=== PATIENT | female | born 1995 | race Caucasian/White ===

== ENCOUNTER 2018-08-08 11:11 | Emergency (ER) | payer OTHER ==
[2018-08-08 11:16] VITALS: BMI 27.1
--- NOTE | 2018-08-08 11:29 | PDOC ---
History of Present Illness - General Chief Complaint: Syncope/Near Syncope Stated Complaint: NEAR SYNCOPE Time Seen by Provider: 08/08/18 11:29 - History of Present Illness Initial Comments: 23yo currently 21 weeks presenting to the ED after syncopal episode. Patient says she was in her living room when she felt lightheaded and lost consciousness. Her saw the episode and said she was down for about a minute or two. He noticed some tremors, but no jerking or shaking of all four limbs, tongue biting, or incontinence. She has never fainted before. Denies history of arrhythmia or heart problems. She felt weak after the syncopal episode but returned to baseline within a couple minutes. Patient says that for about a week she has felt weak with nausea and NBNB vomiting. She has also noticed black stools. She does endorse a stomachache that started this morning. 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 Patient denies chest pain, palpitations, shortness of breath, severe headaches, changes in vision, or focal numbness or weakness. Past History - Past Medical History Allergies/Adverse Reactions: Allergies Allergy/AdvReac Type Severity Reaction Status Date / Time No Known Allergies Allergy Verified 08/08/18 11:14 Home Medications: Ambulatory Orders Cephalexin [Keflex] 500 mg PO BID #14 capsule 08/08/18 COPD: No - Immunization History Immunization Up to Date: Yes - Suicide/Smoking/Psychosocial Hx Smoking History: Never smoked Hx Alcohol Use: No Drug/Substance Use Hx: No Review of Systems - Review of Systems Comments:: Constitutional: no fever, no chills HEENT: no throat pain, no dysphagia Cardiovascular: no chest pain, no palpitations Respiratory: no cough, no shortness of breath Gastrointestinal: +abdominal pain, +nausea, +vomiting Genitourinary: no dysuria, no frequency Musculoskeletal: no myalgia, no arthralgia Skin: no rash, no itching Neurologic: no headache, no dizziness *Physical Exam - Vital Signs Last Vital Signs Temp Pulse Resp BP Pulse Ox 98.0 F 89 18 110/61 99 08/08/18 11:14 08/08/18 11:14 08/08/18 11:14 08/08/18 11:14 08/08/18 11:14 - Physical Exam Comments: General: Awake, alert, and fully oriented, in no acute distress Head: no signs of trauma Eyes: EOMI ENT: Moist mucus membranes Neck: Normal ROM, supple Lungs: Lungs clear, Normal breath sounds Cardio: Regular rhythm, S1 and S2 present Abdomen: Soft, epigastric tenderness. No guarding, no rebound, no masses; gravid uterus extending above the umbilicus Extremities: Normal range of motion, Distal pulses present SKIN: Warm, Dry, normal turgor Neurologic: Cranial nerves II through XII grossly intact. Normal speech ED Treatment Course - LABORATORY CBC & Chemistry Diagram: 08/08/18 12:12 08/08/18 12:12 Medical Decision Making - Medical Decision Making 23yo currently 21 weeks presenting to the ED after syncopal episode. -DDX includes but not limited to anemia, GI bleed, arrhythmia, vasovagal, hypoglycemia, dehydration -Labs: no anemia or leukocytosis, UA positive with 5 WBCs and Leuks, FOBT negative -EKG: rate 73, QTc 405, NSR -Ofirmev 1000mg, Zofran 4mg -1L NS -Treat for asymptomatic bacteriuria with Keflex 500 BID x 7 days -Send to L&D as patient is over 20 weeks *DC/Admit/Observation/Transfer Diagnosis at time of Disposition: Syncope - Discharge Dispostion Disposition: HOME Condition at time of disposition: Stable - Prescriptions Prescriptions: Cephalexin [Keflex] 500 mg PO BID #14 capsule - Referrals Referrals: Celso Patel [Primary Care Provider] - Marilu Reed MD [Staff Physician] - - Patient Instructions Additional Instructions: You came to the emergency department for syncope (fainting). We performed blood work which was normal. Urinalysis shows signs of an infection. We sent antibiotics to your pharmacy: Keflex 500: 1 pill twice a day for seven days Follow up with your epoxy coatings installer doctor on Saturday at your appointment. Return to the Emergency Department if: you pass out again, have any chest pain, palpitations, shortness of breath, severe headaches, changes in vision, focal numbness or weakness, any severe abdominal pain, any black, tarry stool, or any other new or concerning symptoms === Usted vino al departamento de emergencias por un sncope (desmayo). Realizamos un anlisis de betsy que era normal. El anlisis de orina muestra signos de archie infeccin. Enviamos antibiticos a michelle farmacia: Keflex 500: 1 pastilla dos veces al da tamie siete moser Basia un seguimiento con michelle mdico obstetra / gineclogo el mircoles en michelle kalee. Regrese al Departamento de Emergencias si: se desmaya, tiene dolor en el pecho, palpitaciones, dificultad para respirar, katerin de katelynn severos, cambios en la visin, entumecimiento o debilidad focal, dolor abdominal intenso, heces negras, alquitranadas o cualquier otra enfermedad nueva. o acerca de los sntoma DISCHARGE TO HOME MAINTAIN APPOINTMENTS CALL MD AND COME TO HOSPITAL IF YOU HAVE CONTRACTIONS,VAGINAL BLEEDING OR YOU BREAK YOUR WATER OR IF YOU DO NOT FEEL THE BABY MOVING TAKE MEDICINE PRESCRIBED FOR YOUR URINARY TRACT INFECTION - INCREASE WATER INTAKE-8-10 GLASSES/DAY RETURN TO EMERGENCY ROOM IF YOU PASS OUT AGAIN - Post Discharge Activity
--- NOTE | 2018-08-08 12:01 | PDOC ---
Attending Attestation - Resident Resident Name: Yuni Salter - ED Attending Attestation I have performed the following: I have examined & evaluated the patient, The case was reviewed & discussed with the resident, I agree w/resident's findings & plan, Exceptions are as noted - HPI HPI: 23 yo currently 21WGA with uncomplicated . Presents s/p syncopal episode. She states she has had N/V persistently for the past week, dec PO intake. Her first trimester was uncomplicated, but the vomiting has started recently. Denies SOB, cp, leg swelling. +Abdominal cramping. - Physicial Exam PE: GENERAL: Awake, alert, and fully oriented, in no acute distress HEAD: No signs of trauma EYES: PERRLA, EOMI, sclera anicteric, conjunctiva clear ENT: Auricles normal inspection, hearing grossly normal, nares patent, oropharynx clear without exudates. Dry mucosa NECK: Normal ROM, supple, no lymphadenopathy, JVD, or masses LUNGS: Breath sounds equal, clear to auscultation bilaterally. No wheezes, and no crackles HEART: Regular rate and rhythm, normal S1 and S2, no murmurs, rubs or gallops ABDOMEN: Soft, nontender, normoactive bowel sounds. No guarding, no rebound. No masses. +Gravid uterus. EXTREMITIES: Normal range of motion, no edema. No clubbing or cyanosis. No cords, erythema, or tenderness NEUROLOGICAL: Cranial nerves II through XII grossly intact. Normal speech, normal gait. Motor and sensation intact. SKIN: Warm, Dry, normal turgor, no rashes or lesions noted. - Medical Decision Making Symptoms likely due to dehydration- lightheadedness, weakness, cramping all improved with IV fluids. UA showed WBCs, LE, and bacteria. Will give keflex. Sent to L&D once medically cleared.
[2018-08-08] MEDS ORDERED: SODIUM CHLORIDE 1,000 ML IV STA (12:06)
[2018-08-08 12:55] LABS: BASO % 0.3 % (0-2.0); EOS % 0.6 % (0-4.5); HEMATOCRIT 31.9 % (32.4-45.2); HEMOGLOBIN 10.7 GM/dL (10.7-15.3); LYMPH % 18.8 % (8-40); MCH 29.7 pg (25.7-33.7); MCHC 33.4 g/dl (32.0-36.0); MEAN CELL VOLUME 88.9 fl (80-96); MEAN PLT VOLUME 8.6 fl (7.5-11.1); MONO % 3.8 % (3.8-10.2); NEUT % 76.5 % (42.8-82.8); PLATELET COUNT 366 K/MM3 (134-434); WHITE BLOOD COUNT 9.7 K/mm3 (4.0-10.0)
[2018-08-08 13:09] LABS: HCG,QUALITATIVE URINE Positive
[2018-08-08 13:24] LABS: ALBUMIN 2.8 g/dl (3.4-5.0); ALK PHOS 78 U/L (45-117); ANION GAP 7 MMOL/L (8-16); BILIRUBIN,TOTAL 0.1 mg/dL (0.2-1); BLOOD UREA NITROGEN 5 mg/dL (7-18); CALCIUM 8.7 mg/dL (8.5-10.1); CHLORIDE 104 mmol/L (98-107); CO2 26 mmol/L (21-32); CREATININE 0.3 mg/dL (0.55-1.3); GLUCOSE,RANDOM 78 mg/dL (74-106); POTASSIUM 4.2 mmol/L (3.5-5.1); SGOT/AST 18 U/L (15-37); SGPT/ALT 26 U/L (13-61); SODIUM 137 mmol/L (136-145); TOT PROT 7.1 g/dl (6.4-8.2)
[2018-08-08] MEDS ORDERED: ONDANSETRON 4 MG/2 ML VIAL IVPUSH ONE (13:36)
[2018-08-08] MEDS ORDERED: ACETAMINOPHEN 1000 MG/100 ML VIAL (NON FORMULARY) IVPB ONE ×2 (13:36→15:25)
[2018-08-08 13:39] LABS: URINE APPEARANCE CLOUDY; URINE BILIRUBIN NEGATIVE (<2.0 mg/dL); URINE COLOR YELLOW; URINE GLUCOSE (UA) NEGATIVE (NEGATIVE); URINE KETONE NEGATIVE (NEGATIVE); URINE LEUK ESTERASE 2+ (NEGATIVE); URINE NITRITE NEGATIVE (NEGATIVE); URINE PROTEIN NEGATIVE (NEGATIVE); URINE UROBILINOGEN NEGATIVE mg/dL (0.2-1.0)
[2018-08-08 14:03] LABS: EPI CELLS MODERATE /HPF (FEW); URINE BACTERIA RARE /hpf (NONE SEEN); URINE MUCUS FEW
[2018-08-08] MEDS ORDERED: ONDANSETRON 4 MG/2 ML VIAL ONE (14:05)
[2018-08-08] MEDS ORDERED: ACETAMINOPHEN INJECTION 100 ML IVPB ONE (14:05)
[2018-08-08] MEDS ORDERED: CEPHALEXIN MONOHYDRATE 500 MG CAPSULE (UD) PO ONE (15:29)
[2018-08-08] MEDS ORDERED: CEPHALEXIN MONOHYDRATE 500 MG CAPSULE (UD) ONE (15:52)
[2018-08-08 17:36] VITALS: BP 109/68; PULSE 89; TEMP 98.8
--- NOTE | 2018-08-09 18:07 | EKG ---
Test Reason : Blood Pressure : / mmHG Vent. Rate : 073 BPM Atrial Rate : 073 BPM P-R Int : 136 ms QRS Dur : 074 ms QT Int : 368 ms P-R-T Axes : 042 051 018 degrees QTc Int : 405 ms NORMAL SINUS RHYTHM NORMAL ECG NO PREVIOUS ECGS AVAILABLE Confirmed by DORI JUÁREZ MD ([id number]) on 08/09/2018 6:06:55 PM Referred By: Confirmed By:DORI JUÁREZ MD
== END 2018-08-08 18:10 | disposition home or self-care (01) ==
LOC: JER 11:11
PROC: 3E0337Z Introduction of Electrolytic and Water Balance Substance into Peripheral Vein, Percutaneous Approach (ICD-10-PCS; principal; 2018-08-08)
PROC: 3E033NZ Introduction of Analgesics, Hypnotics, Sedatives into Peripheral Vein, Percutaneous Approach (ICD-10-PCS; 2018-08-08)
PROC: 3E033GC Introduction of Other Therapeutic Substance into Peripheral Vein, Percutaneous Approach (ICD-10-PCS; 2018-08-08)
DX: O26.892 Other specified pregnancy related conditions, second trimester (principal); R55 Syncope and collapse; R82.71 Bacteriuria; Z3A.21 21 weeks gestation of pregnancy
CPT/HCPCS: 36415; 80053; 81003; 81015; 82272; 84703; 85025; 87086; 93005; 93010; 96361; 96374; 96375; 99283-25; J0131; J7030

== ENCOUNTER 2018-12-09 12:00 | Inpatient (IN) | payer OTHER ==
[2018-12-09] MEDS ORDERED: BUTORPHANOL TARTRATE 1 MG/ML VIAL IVPUSH ONE (13:26)
[2018-12-09] MEDS ORDERED: PROMETHAZINE HCL 25 MG/1 ML VIAL IVPB ONE (13:26)
--- NOTE | 2018-12-09 13:26 | HP ---
Past Medical History - Primary Care Physician PCP:: Km Rondon - Admission Chief Complaint: 40.4 weeks, by date, 38,6 by sono, in labor History of Present Illness: 23 yo 38.6 by early sono ., 40.4 by date in labor, cx 2 to 3 cm 75 vx -3 mi , fhr cat 1, irregular contraction History Source: Patient Limitations to Obtaining History: Language Barrier - Past Medical History ...: 1 ...Para: 0 ...EDC by Dates: 12/05/18 ...EDC by Sono: 12/17/18 Heme/Onc: Yes: Anemia - Past Surgical History Hx Myomectomy: No Hx Transabdominal Cerclage: No - Smoking History Smoking history: Never smoked - Alcohol/Substance Use Hx Alcohol Use: No - Social History History of Recent Travel: No Home Medications - Allergies Allergies/Adverse Reactions: Allergies Allergy/AdvReac Type Severity Reaction Status Date / Time No Known Allergies Allergy Verified 12/09/18 12:54 - Home Medications Home Medications: Ambulatory Orders Pnv No.95/Ferrous Fum/Folic AC [ Vitamin Tablet] 1 each PO DAILY Review of Systems - Review of Systems Constitutional: reports: No Symptoms Eyes: reports: No Symptoms HENT: reports: No Symptoms Neck: reports: No Symptoms Cardiovascular: reports: No Symptoms Respiratory: reports: No Symptoms Gastrointestinal: reports: No Symptoms Genitourinary: reports: No Symptoms Breasts: reports: No Symptoms Reported Musculoskeletal: reports: No Symptoms Integumentary: reports: No Symptoms Neurological: reports: No Symptoms Endocrine: reports: No Symptoms Hematology/Lymphatic: reports: No Symptoms Psychiatric: reports: No Symptoms Physical Exam - Maternity Constitutional: Yes: Well Nourished, No Distress, Calm Eyes: Yes: WNL, Conjunctiva Clear, EOM Intact HENT: Yes: WNL, Atraumatic, Normocephalic Neck: Yes: WNL, Supple, Trachea Midline Cardiovascular: Yes: WNL, Regular Rate and Rhythm Breast(s): Yes: WNL - Abdominal Exam/OB Fundal Height: 38 Number of Fetuses: Single Presentation: Vertex Contractions: Yes Regularity: Irregular Intensity: Moderate Monitor Mode: External Heart Rate Location: [facility] Category: I Accelerations: Uniform Decelerations: None - Vaginal Exam/OB Vaginal Bleediing: Bloody Show Speculum Exam: No Dilatation (cm): 3 Effacement (%): 75 Amniotic Membrane Status: Intact Presentation: Vertex/Position Station: -3 - Physical Exam Edema: No Deep Tendon Reflex Grade: Normal +2 ...Motor Strength: WNL Psychiatric: Yes: WNL Problem List - Problems (1) 38 to 41 weeks gestation of Code(s): [id number] - (2) Labor established Code(s): [id number] - Assessment/Plan plan admit, pain management FHM anticipate vaginal delivery
[2018-12-09 13:54] VITALS: BMI 29.5
[2018-12-09 14:01] LABS: BASO % 0.4 % (0-2.0); EOS % 0.3 % (0-4.5); HEMATOCRIT 32.8 % (32.4-45.2); HEMOGLOBIN 11.3 GM/dL (10.7-15.3); LYMPH % 18.7 % (8-40); MCH 30.1 pg (25.7-33.7); MCHC 34.5 g/dl (32.0-36.0); MEAN PLT VOLUME 8.4 fl (7.5-11.1); MONO % 3.6 % (3.8-10.2); PLATELET COUNT 336 K/MM3 (134-434); RBC 3.77 M/mm3 (3.60-5.2); RDW 14.9 % (11.6-15.6); WHITE BLOOD COUNT 9.6 K/mm3 (4.0-10.0)
[2018-12-09 14:21] LABS: INR 0.97 (0.83-1.09); PROTHROMBIN TIME (PATIENT) 11.4 SEC (9.7-13.0)
[2018-12-09 14:24] LABS: ACTIVATED PTT 27.2 SECONDS (25.2-36.5)
[2018-12-09 14:26] LABS: ANION GAP 8 MMOL/L (8-16); BLOOD UREA NITROGEN 7 mg/dL (7-18); CALCIUM 8.4 mg/dL (8.5-10.1); CHLORIDE 102 mmol/L (98-107); CO2 25 mmol/L (21-32); CREATININE 0.5 mg/dL (0.55-1.3); GLUCOSE,RANDOM 131 mg/dL (74-106); SODIUM 135 mmol/L (136-145)
[2018-12-09] MEDS ORDERED: DEXTROSE 5%-LACTATED RINGERS 1,000 ML IV ONE (18:35)
[2018-12-09] MEDS ORDERED: PROMETHAZINE HCL 25 MG/1 ML VIAL ONE (19:33)
[2018-12-09] MEDS ORDERED: BUTORPHANOL TARTRATE 1 MG/ML VIAL ONE ×2 (19:33)
[2018-12-10] MEDS ORDERED: FENTANYL/BUPIVACAINE/NS/PF - PCEA - 50 ML DISP.SYRIN EP ONE (01:59)
[2018-12-10] MEDS ORDERED: ELECTROLYTE-148 SOLN 1,000 ML IV ONE (02:00)
[2018-12-10] MEDS ORDERED: BUPIVACAINE HCL/PF 0.25% (2.5MG/ML) 10 ML VIAL ONE (02:08)
[2018-12-10] MEDS ORDERED: LIDO 2%/EPI 1:200000 PRESRVFRE (20 ML SDVIAL) ONE (02:09)
[2018-12-10] MEDS ORDERED: NALOXONE HCL 0.4 MG/ML VIAL IVPUSH PRN (02:39)
[2018-12-10] MEDS ORDERED: FENTANYL/BUPIVACAINE/NS/PF - PCEA - 50 ML DISP.SYRIN EP SCH ×2 (02:45→04:21)
[2018-12-10] MEDS ORDERED: ELECTROLYTE-148 SOLN 1,000 ML IV SCH (04:00)
--- NOTE | 2018-12-10 08:25 | PN ---
Progress Note (short form) - Note Progress Note: cx 9 cm, 100 vx 0- mi , fhr cat 1, irregular contraction plan anticipate vaginal delivery soon Problem List - Problems (1) 38 to 41 weeks gestation of Code(s): [id number] - (2) Labor established Code(s): [id number] -
[2018-12-10] MEDS ORDERED: LIDOCAINE HCL 1% PRESERVATIVE FREE - 30ML VIAL ONE (08:43)
[2018-12-10] MEDS ORDERED: OXYTOCIN 20 UNITS in 0.9% NS 20 UNIT/1,000 ML INFUS.BAG IV ONE (08:43)
--- NOTE | 2018-12-10 09:20 | PN ---
Progress Note (short form) - Note Progress Note: cx full 100 vx 1+ , fhr cat 1 , pushing Problem List - Problems (1) 38 to 41 weeks gestation of Code(s): [id number] - (2) Labor established Code(s): [id number] -
[2018-12-10] MEDS ORDERED: BENZOCAINE 28 GM HEMORRHOIDAL OINTMENT TP PRN (10:03)
[2018-12-10] MEDS ORDERED: WITCH HAZEL 50% (TUCKS) 40 PAD/JAR PAD TP PRN (10:03)
[2018-12-10] MEDS ORDERED: METHYLERGONOVINE MALEATE 0.2 MG/1 ML AMP IM PRN (10:03)
[2018-12-10] MEDS ORDERED: BISACODYL 10 MG SUPP.RECT RC PRN (10:03)
[2018-12-10] MEDS ORDERED: BENZOCAINE 20% 57 GM BOTTLE TP PRN (10:03)
[2018-12-10] MEDS ORDERED: OXYTOCIN 20 UNITS in 0.9% NS 20 UNIT/1,000 ML INFUS.BAG IV SCH (10:15)
[2018-12-10] MEDS ORDERED: D5W-LR W/ 20 UNITS OXYTOCIN 1,000 ML IV SCH (10:15)
[2018-12-10] MEDS ORDERED: ACETAMINOPHEN 325 MG TABLET (FP) ONE (11:08)
[2018-12-10] MEDS ORDERED: IBUPROFEN 600 MG TABLET (FP) PO ONE (11:08)
[2018-12-10] MEDS: IBUPROFEN 600 MG TABLET (FP) PO PRN ×2 (11:13→21:47)
[2018-12-10] MEDS: ACETAMINOPHEN 325 MG TABLET (FP) PO PRN ×2 (11:14→21:45)
[2018-12-10 11:27] LABS: ARTERIAL BLOOD GAS PCO2 35.4 mmHg (35-45); ARTERIAL BLOOD GAS pH 7.33 (7.35-7.45)
[2018-12-10 11:33] LABS: ARTERIAL BLOOD GAS PO2 41.8 mmHg (80-100)
[2018-12-10 11:35] LABS: VENOUS PH 7.31 (7.32-7.42); VENOUS PO2 32.6 mmHg (28-48)
[2018-12-10] MEDS: FERROUS SO4 325 MG TABLET (FP) PO SCH (18:02)
[2018-12-11] MEDS: ACETAMINOPHEN 325 MG TABLET (FP) PO PRN ×3 (06:08→21:46)
[2018-12-11] MEDS: IBUPROFEN 600 MG TABLET (FP) PO PRN ×3 (06:10→21:46)
[2018-12-11 08:19] LABS: BASO % 0.2 % (0-2.0); EOS % 0.8 % (0-4.5); HEMATOCRIT 27.1 % (32.4-45.2); HEMOGLOBIN 9.3 GM/dL (10.7-15.3); LYMPH % 21.8 % (8-40); MCH 30.2 pg (25.7-33.7); MCHC 34.2 g/dl (32.0-36.0); MEAN CELL VOLUME 88.4 fl (80-96); MEAN PLT VOLUME 8.6 fl (7.5-11.1); MONO % 5.7 % (3.8-10.2); NEUT % 71.5 % (42.8-82.8); PLATELET COUNT 245 K/MM3 (134-434); RBC 3.06 M/mm3 (3.60-5.2); RDW 15.1 % (11.6-15.6); WHITE BLOOD COUNT 13.6 K/mm3 (4.0-10.0)
[2018-12-11] MEDS: FERROUS SO4 325 MG TABLET (FP) PO SCH ×2 (09:00→17:07)
[2018-12-11] MEDS: PRENATAL VITAMINS W/ FOLIC ACID TABLET (FP) PO SCH (09:12)
[2018-12-11] MEDS ORDERED: FLU VACCINE QUAD 60 MCG/0.5 ML (MDV 18-19) IM ONE (10:00)
[2018-12-11] MEDS ORDERED: DIPHTH,PERTUSS(ACELL),TET 0.5 ML DISP.SYRIN IM ONE (10:00)
[2018-12-11] MEDS ORDERED: PRENATAL VITAMINS W/ FOLIC ACID TABLET (FP) PO SCH (10:00)
--- NOTE | 2018-12-11 14:48 | PN ---
Progress Note (short form) - Note Progress Note: ppd 1 doing well, ambulating well CBC, BMP 12/11/18 07:30 12/09/18 13:40 Last Vital Signs Temp Pulse Resp BP Pulse Ox 97.7 F 91 H 18 113/67 100 12/11/18 09:58 12/11/18 09:58 12/11/18 09:58 12/11/18 09:58 12/10/18 11:00 abdomen soft, non tender, no cva uterus firm, non tender lochia mild no calf tenderness plan ambulte for d/c home in am Problem List - Problems (1) 38 to 41 weeks gestation of Code(s): [id number] - (2) Labor established Code(s): [id number] -
[2018-12-11] MEDS ORDERED: SENNOSIDES/DOCUSATE COMBO (SENNA PLUS) TABLET (UD) PO PRN (22:00)
[2018-12-12] MEDS: IBUPROFEN 600 MG TABLET (FP) PO PRN (06:07)
[2018-12-12] MEDS: ACETAMINOPHEN 325 MG TABLET (FP) PO PRN (06:08)
--- NOTE | 2018-12-12 07:18 | DS ---
Physical Exam-[employer] Vital Signs: Vital Signs Temperature 98.3 F 12/11/18 22:00 Pulse Rate 89 12/11/18 22:00 Respiratory Rate 18 12/11/18 22:00 Blood Pressure 115/74 12/11/18 22:00 O2 Sat by Pulse Oximetry (%) 100 12/10/18 11:00 Constitutional: Yes: Well Nourished, No Distress, Calm Eyes: Yes: WNL, Conjunctiva Clear, EOM Intact HENT: Yes: WNL, Atraumatic, Normocephalic Neck: Yes: WNL, Supple, Trachea Midline Cardiovascular: Yes: WNL, Regular Rate and Rhythm Respiratory: Yes: WNL, Regular, CTA Bilaterally Gastrointestinal: Yes: WNL ...Rectal Exam: Yes: WNL Renal/: Yes: WNL ....Post : Yes: Uterus firm, Uterus non-tender, Slight lochia rubra Breast(s): Yes: WNL Musculoskeletal: Yes: WNL Extremities: Yes: WNL Edema: No Integumentary: Yes: WNL Neurological: Yes: WNL, Alert, Oriented ...Motor Strength: WNL Psychiatric: Yes: WNL, Alert, Oriented Labs: CBC, BMP 12/11/18 07:30 12/09/18 13:40 Delivery - Delivery Vaginal Delivery: Spontaneous (no complication) Type of Anesthesia: Local, Epidural Episiotomy/Laceration: Perineal Extension/lac, 2nd degree EBL (cc): 300 Delivery, Single - Stages of Labor Date 1st Stage Initiatied: 12/09/18 Time 1st Stage Initiated: 19:00 Date 2nd Stage Initiated: 12/10/18 Time 2nd Stage Initiated: 09:10 Date of Delivery: 12/10/18 Time of Delivery: 09:39 Time Placenta Delivered: 09:45 Placenta: Yes: Spontaneous - Condition of Infant Disease Intervention Specialist/Logging Truck Driver Present: No Gender: Female Weight: 7 lb 4 oz Position: Left, OA Total Hours ROM (Hrs/Mins): 1hr 40 min - 1 Minute Total Score: 9 5 Minutes Total Score: 9 - Faber Feeding Plan Initial Plan: Elected not to breastfeed exclusively throughout hospitalization Discharge Summary Reason For Visit: LABOR ADMISSION Current Active Problems 38 to 41 weeks gestation of (Acute) Labor established (Acute) Procedures: Principal: Condition: Good - Instructions Diet, Activity, Other Instructions: regular diet, follow up h care 4 weeks, if pain, fever, heavy vaginal bleeding call MD Referrals: Km Rondon MD [Staff Physician] - Disposition: HOME - Home Medications Comprehensive Discharge Medication List: Ambulatory Orders Pnv No.95/Ferrous Fum/Folic AC [ Vitamin Tablet] 1 each PO DAILY Ibuprofen [Motrin -] 600 mg PO TID #21 tablet 12/10/18
[2018-12-12 09:18] VITALS: BP 118/78; PULSE 85; TEMP 97.9
[2018-12-12] MEDS: PRENATAL VITAMINS W/ FOLIC ACID TABLET (FP) PO SCH (09:43)
[2018-12-12] MEDS: FERROUS SO4 325 MG TABLET (FP) PO SCH (09:43)
== END 2018-12-12 11:35 | disposition home or self-care (01) | DRG 560 ==
LOC: JDEL 12:00 → JLDR 13:00 → J3W 12-10 11:48
PROVIDERS: ADMIT Obstetrics & Gynecology; ATTEND Obstetrics & Gynecology
PROC: 10E0XZZ Delivery of Products of Conception, External Approach (ICD-10-PCS; principal; 2018-12-09)
PROC: 0KQM0ZZ Repair Perineum Muscle, Open Approach (ICD-10-PCS; 2018-12-09)
DX: O48.0 Post-term pregnancy (principal); O70.1 Second degree perineal laceration during delivery; Z3A.40 40 weeks gestation of pregnancy; Z37.0 Single live birth
CPT/HCPCS: 36415; 36600; 59025; 59409; 80048; 82803; 85025; 85610; 85730; 86593; 86850; 86900; 86901; 90688; 90715; G0008

== ENCOUNTER 2022-04-26 13:44 | Emergency (ER) | payer OTHER ==
[2022-04-26 13:54] VITALS: BP 111/78; PULSE 82; TEMP 98; BMI 30.1
[2022-04-26] MEDS ORDERED: diphenhydrAMINE HCL 50 MG CAPSULE PO ONE (15:29)
[2022-04-26] MEDS ORDERED: diphenhydrAMINE HCL 25 MG CAPSULE (FP) PO ONE (15:31)
== END 2022-04-26 16:55 | disposition home or self-care (01) ==
LOC: JERFT 13:44
DX: R21 Rash and other nonspecific skin eruption (principal)
CPT/HCPCS: 99283-25

== ENCOUNTER 2022-09-08 11:36 | Emergency (ER) | payer OTHER ==
[2022-09-08 11:53] VITALS: BP 124/84; RESP 18; TEMP 97.9; BMI 26.7
[2022-09-08] MEDS ORDERED: SODIUM CHLORIDE 1,000 ML IV STA (12:12)
[2022-09-08] MEDS ORDERED: ACETAMINOPHEN 1000 MG/100 ML BAG IVPB ONE (12:12)
[2022-09-08] MEDS ORDERED: ACETAMINOPHEN INJECTION 100 ML IVPB ONE (12:56)
[2022-09-08 13:15] LABS: BASO % 0.4 % (0-2.0); HEMATOCRIT 37.8 % (32.4-45.2); HEMOGLOBIN 12.8 GM/dL (10.7-15.3); LYMPH % 15.4 % (8-40); MCH 29.4 pg (25.7-33.7); MCHC 33.9 g/dl (32.0-36.0); MEAN CELL VOLUME 86.7 fl (80-96); MEAN PLT VOLUME 7.8 fl (7.5-11.1); MONO % 5.9 % (3.8-10.2); NEUT % 78.3 % (42.8-82.8); PLATELET COUNT 410 10^3/uL (134-434); RBC 4.37 M/mm3 (3.60-5.2); RDW 12.6 % (11.6-15.6); WHITE BLOOD COUNT 12.2 K/mm3 (4.0-10.0)
[2022-09-08 13:48] LABS: CALCIUM 8.9 mg/dL (8.5-10.1)
[2022-09-08 13:50] LABS: ALBUMIN 3.1 g/dl (3.4-5.0); BLOOD UREA NITROGEN 7.6 mg/dL (7-18)
[2022-09-08 13:52] LABS: CREATININE 0.8 mg/dL (0.55-1.3)
[2022-09-08 13:54] LABS: BILIRUBIN,TOTAL 0.2 mg/dL (0.2-1); TOT PROT 7.6 g/dl (6.4-8.2)
[2022-09-08 16:12] VITALS: PULSE 92
== END 2022-09-08 16:12 | disposition home or self-care (01) ==
LOC: JER 11:36
PROC: 3E0333Z Introduction of Anti-inflammatory into Peripheral Vein, Percutaneous Approach (ICD-10-PCS; principal; 2022-09-08)
PROC: 3E0337Z Introduction of Electrolytic and Water Balance Substance into Peripheral Vein, Percutaneous Approach (ICD-10-PCS; 2022-09-08)
DX: K52.9 Noninfective gastroenteritis and colitis, unspecified (principal)
CPT/HCPCS: 0241U-QW; 36415; 80053; 83690; 85025; 99284-25

== ENCOUNTER 2025-08-17 09:36 | Emergency (ER) | payer OTHER ==
[2025-08-17 09:43] VITALS: BP 135/84; PULSE 88; RESP 20; TEMP 97.6; BMI 25.7
[2025-08-17] MEDS ORDERED: ACETAMINOPHEN 325 MG TABLET (FP) ONE (10:20)
[2025-08-17] MEDS: ACETAMINOPHEN 500 MG TABLET (FP) PO ONE (10:23)
[2025-08-17 10:31] LABS: HCG,QUALITATIVE URINE Negative
[2025-08-17 10:34] LABS: URINE COLOR YELLOW
[2025-08-17 10:35] LABS: URINE APPEARANCE CLEAR; URINE BILIRUBIN NEGATIVE (NEGATIVE); URINE GLUCOSE (UA) NEGATIVE (NEGATIVE); URINE KETONE NEGATIVE (NEGATIVE); URINE LEUK ESTERASE TRACE (NEGATIVE); URINE NITRITE NEGATIVE (NEGATIVE); URINE PROTEIN NEGATIVE (NEGATIVE); URINE UROBILINOGEN 0.2 mg/dL (0.2-1.0)
[2025-08-17 11:01] LABS: THROAT:GRP A STREP NOT DETECTED (NOTDETECTED)
[2025-08-17] MEDS ORDERED: AMOX TR/POT CLAV 875MG/125MG TABLETS (FP) PO ONE (11:38)
[2025-08-17] MEDS ORDERED: AMOX TR/POT CLAV 875MG/125MG TABLETS (FP) ONE (11:44)
== END 2025-08-17 11:47 | disposition home or self-care (01) ==
LOC: JERFT 09:36
DX: J02.9 Acute pharyngitis, unspecified (principal); R50.9 Fever, unspecified; R51.9 Headache, unspecified; R59.0 Localized enlarged lymph nodes; J35.1 Hypertrophy of tonsils
CPT/HCPCS: 81003; 84703; 87086; 87637-QW; 87651; 99283-25